=== PATIENT | male | born 1950 | race Caucasian/White ===

== ENCOUNTER → 2016-10-11 | Outpatient (REF) | payer OTHER, MEDICARE ==
[~2016-10-11] MED LIST: LEVOTAB10 PO; LISI10TA4 PO; METR0.00 TOP; MULTCAP PO; NEXI40CA PO; SIMV20TA2 PO
== END ==
LOC: M SFHCPLAZ 17:08
PROVIDERS: ATTEND Dermatology
DX: L08.9 Local infection of the skin and subcutaneous tissue, unspecified (principal)

== ENCOUNTER → 2016-10-19 | Outpatient (REF) | payer OTHER, MEDICARE | LOC: M SFHCPLAZ 16:57 | PROVIDERS: ATTEND Dermatology | DX: L91.8 Other hypertrophic disorders of the skin (principal) ==

== ENCOUNTER → 2016-12-28 | Outpatient (REF) | payer MEDICARE | LOC: M LAB REF 10:23 | PROVIDERS: ATTEND Nurse Practitioner Family | DX: R21 Rash and other nonspecific skin eruption (principal) ==

== ENCOUNTER → 2018-04-26 | Outpatient (REF) | payer MEDICARE | LOC: M LAB REF 18:25 | PROVIDERS: ATTEND Family Medicine | DX: E03.9 Hypothyroidism, unspecified (principal) ==

== ENCOUNTER → 2020-03-30 | Outpatient (CLI) | payer SELFPAY ==
[~2020-03-30] MED LIST changes: -SIMV20TA2 PO; +SIMV20TA22 PO
== END ==
LOC: M LABSMTC 13:31
PROVIDERS: ATTEND Pediatrics
DX: Z20.828 Contact with and (suspected) exposure to other viral communicable diseases (principal)